=== PATIENT | female | born 1955 | race Caucasian/White ===

== ENCOUNTER 2024-10-27 17:11 | Emergency (ER) | payer OTHER, SELFPAY ==
[2024-10-27] VITALS (8 sets, daily range): BP systolic 118–165; BP diastolic 50–72
--- NOTE | 2024-10-27 17:35 | ED.GENMED ---
History of Present Illness
General
Chief Complaint: Chest Pain
Source: patient
Exam Limitations: none
Time Seen by Provider: 10/27/24 17:33
History of Present Illness
History of Present Illness:
69yoF with a history of hyperlipidemia presenting for evaluation of upper back pain. Patient was sitting this morning around 10 AM. She stood up and suddenly felt a pain throughout her upper back which took her breath away. She then started to
experience a heaviness in her right arm and some indigestion. She denies any associated nausea or diaphoresis. Symptoms have mostly resolved at this point but she does have some lingering upper back discomfort. Pain was initially worse with
breathing. She denies any syncope, chest pain, vomiting, cough. She was seen at urgent care prior to arrival and was sent to the ED for evaluation. She denies any history of heart disease. Her brother had stents put in in his mid 60s. No
tobacco use.
Phy Exam
General Physical Exam
General Presentation: well appearing and no apparent distress
General Skin: warm and dry
General Habitus: normal
General Mental: alert
ENT Exam
ENT Exam: normocephalic
Cardiovascular Exam
Cardiovascular Exam: regular rate/rhythm, no edema, no murmur and normal peripheral pulses (2+ radial and DP pulses bilaterally)
Pulmonary Exam
Pulmonary Exam: lungs clear, no respiratory distress, no rales, no crackles, no rhonchi and no wheezing
Neurological Exam
Neurological Exam: alert
[place] Coma Scale
Eye Opening: Spontaneous
Verbal Response: Oriented
Motor Response: Obeys Commands
GCS Total Score: 15
Skin Exam
Skin Exam: normal color and warm/dry
Psychiatric Exam
Psychiatric Exam: normal mood/affect
Scores
Heart Score for Chest Pain Patients
STEMI patient?: No
History: Moderately Suspicious
ECG: Normal
Age: >/= 65 years
Risk Factors: 1 or 2 Risk Factors
Troponin: </= Normal Limit
Heart Score for Chest Pain Patients: 4
Heart Score Risk: 20.3% MACE over next 6 weeks
Course
Orders/Labs/Results
Orders:
Orders
10/27/24 17:12
Electrocardiogram (*1) Urgent
Reason for Study: Shortness of Breath
EKG- Treatment ONCE
10/27/24 17:48
Cardiac Monitoring- Treatment ONCE
10/27/24 17:53
Complete Blood Count/With Diff Urgent
Comprehensive Metabolic Panel Urgent
D-Dimer Urgent
Troponin I Urgent
10/27/24 18:20
CR Chest - 2 Views Urgent
Comment:
Reason For Exam: CP
10/27/24 19:46
Electrocardiogram (*1) Urgent
Reason for Study: Chest Pain
EKG- Treatment ONCE
10/27/24 20:21
Troponin I Urgent
Abnormal Lab Results
10/27/24
17:53
Absolute Monos (auto) 0.8 H 10^3/uL
(0.1-0.6)
Neutrophils % 37.5 L %
(42.2-75.2)
Monocytes % 11.0 H %
(1.7-9.3)
Chloride 110 H mmol/L
(98-107)
BUN 25 H mg/dl
(7-17)
10/27/24 17:53
10/27/24 17:53
Vital Signs
Initial and Last Documented VS:
Initial Vital Signs
Temp Pulse Resp BP Pulse Ox
98.9 F 66 15 165/66 97
10/27/24 17:18 10/27/24 17:18 10/27/24 17:18 10/27/24 17:18 10/27/24 17:18
Last Documented Vital Signs
Temp Pulse Resp BP Pulse Ox
98.9 F 65 20 132/59 98
10/27/24 17:18 10/27/24 18:30 10/27/24 18:30 10/27/24 18:00 10/27/24 18:30
MDM/Problems Addressed
Differential Diagnosis Includes:
69yoF here with upper back pain. [place] a shooting pain across her upper back that took her breath away. She also had indigestion and R arm heaviness. Symptoms now improved. She is hypertensive on arrival with otherwise stable vitals. She is well
appearing in no distress. Exam reassuring. Equal pulses noted in all extremities and bilateral upper extremity blood pressures equal. Differential diagnosis includes but is not limited to: ACS, PE, musculoskeletal, esophagitis
Initial ED plan: Check cardiac labs, D-dimer, EKG, and CXR.
*EKG
Interpreted by ED Provider?: Yes
EKG Intrepretation Date: 10/27/24
Heart Rate: 60
Rate: normal
Rhythm: sinus
[place]: left axis deviation
Interval: normal interval
QRS Pattern: right bundle branch block (incomplete)
Ischemia: no ischemia
*Critical Care Note
Total Time (30-74mins, 75-104mins- exclusive of procedures): Not Applicable
Update Note
Update Note:
EKG shows NSR without ischemic changes. Initial troponin 0.013. Remainder of labs unremarkable. CXR shows no acute cardiopulmonary disease. There appears to be mild diffuse loss of height at L1 although she denies any low back pain. Repeat troponin
slightly increased to 0.018 although still in normal range. Repeat EKG unchanged. On reassessment, her symptoms have completely resolved. No indication for hospitalization and she also does not want to be admitted because she is the primary
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 Will discharge with f/u with chest pain hotline. Strict ED return precautions reviewed. Patient discharged in stable condition.
ED Attending Note
-
Portions of this chart may have been created with voice recognition software.� Occasional wrong word or��sound alike� substitutions may have occurred due to the inherent limitations of voice recognition software.
Discharge Plan
Departure
Patient Disposition: Home (Routine Discharge)
Date of Disposition: 10/27/24
Time of Disposition: 21:03
Patient with high blood pressure during this ER visit?: No
Discharge Problem:
Upper back pain
Instructions: Chest Pain [facility] Follow Up
Referrals:
Wild Melton MD [Active] -
Wild Hernandez DO [Family Provider] -
Activity Restrictions/Additional Instructions:
Please call to schedule a follow-up with your family doctor and cardiology. Return to the ER with any new or worsening symptoms.
Interventions
Interventions:
*Risk Screen - Suicide Last Done: 10/27/24 17:18
*General Assessment Last Done: 10/27/24 17:18
*Neglect/Abuse Screening Last Done: 10/27/24 17:18
*ED- Fall Risk Assessment Last Done: 10/27/24 21:14
*ED COVID-19 Vaccine History Last Done: 10/27/24 21:14
*Nursing Disposition Last Done: 10/27/24 21:15
ED- Cardiac Assessment Last Done: 10/27/24 17:41
Discharge Date and Time
Discharge Date/Time: 10/27/24 21:16
Print Language: LITHUANIAN
[2024-10-27 18:03] LABS: % Basophils 0.9 % (0-2); % Eosinophils 2.2 % (0-6); % Immature Granulocytes 0.1 % (0-0.5); % Lymphocytes 48.3 % (20.5-51.1); % Neutrophils 37.5 % (42.2-75.2); Absolute Basophils 0.1 10^3/uL (0-0.2); Absolute Eosinophils 0.2 10^3/uL (0-0.7); Absolute Lymphocytes 3.3 10^3/uL (1.2-3.4); Absolute Monocytes 0.8 10^3/uL (0.1-0.6); Absolute Neutrophils 2.6 10^3/uL (1.4-6.5); Hematocrit 38.7 % (37.0-47.0); Hemoglobin 13.1 g/dL (12.0-16.0); Mean Corp Hgb Conc. 33.9 g/dL (33.0-37.0); Mean Corpuscular Hgb 29.5 pg (27.0-31.0); Mean Corpuscular Volume 87.2 fL (81.0-99.0); Nucleated Red Blood Cells % 0 %; Platelet Count 265 10^3/uL (130-400); Red Blood Cell Count 4.44 10^6/uL (4.20-5.40); Red Cell Dist. Width 12.9 % (11.5-14.5); White Blood Cell Count 6.9 10^3/uL (4.8-10.8)
[2024-10-27 18:16] LABS: D-Dimer 0.35 ug/mlFEU (0.00-0.50)
[2024-10-27 18:19] LABS: ALT (SGPT) 15 U/L (0-35); AST (SGOT) 19 U/L (14-36); Albumin 4.1 g/dl (3.5-5.0); Alkaline Phosphatase 49 U/L (38-126); Blood Urea Nitrogen 25 mg/dl (7-17); Calcium 9.4 mg/dl (8.4-10.2); Carbon Dioxide 26 mmol/L (22-30); Chloride 110 mmol/L (98-107); Glucose 93 mg/dl (70-99); Potassium 3.8 mmol/L (3.5-5.1); Sodium 141 mmol/L (135-145); Total Bilirubin 0.4 mg/dl (0.2-1.3); Total Protein 6.8 g/dl (6.3-8.2); eGFR > 60.00
[2024-10-27 18:27] LABS: Troponin I 0.013 ng/ml
[2024-10-27 20:55] LABS: Troponin I 0.018 ng/ml
== END 2024-10-27 21:16 | disposition home or self-care (01) ==
LOC: EMR 17:11
PROVIDERS: Physician Assistant; EMERGENCY PHYSICIAN Emergency Medicine; FAMILY PHYSICIAN Family Medicine
DX: M54.6 Pain in thoracic spine (principal); E78.5 Hyperlipidemia, unspecified; I45.10 Unspecified right bundle-branch block
CPT/HCPCS: 99285; 71046; 80053; 84484; 85025; 85379; 93005

== ENCOUNTER → 2024-11-21 13:30 | Outpatient (REF) | payer OTHER, SELFPAY | LOC: RCS 13:30 | PROVIDERS: ATTENDING PHYSICIAN Internal Medicine Interventional Cardiology; FAMILY PHYSICIAN Family Medicine | DX: R07.89 Other chest pain (principal) | CPT/HCPCS: 93017; 93350 ==